=== PATIENT | female | born 1995 | race Caucasian/White ===

== ENCOUNTER 2019-10-15 15:20 | Outpatient (CLI) | payer MEDICAID, SELFPAY ==
[2019-10-15 15:30] VITALS: RESP 16; TEMP 37.1
[2019-10-15 15:42] VITALS: BMI 37.7
[2019-10-15 15:58] VITALS: BP 126/82; PULSE 107
== END 2019-10-15 16:12 | disposition home or self-care (01) ==
LOC: OPOB 15:51 → OBGYN 15:53
PROVIDERS: Visit Provider Family Medicine
DX: O36.8190 Decreased fetal movements, unspecified trimester, not applicable or unspecified (principal); Z3A.00 Weeks of gestation of pregnancy not specified
CPT/HCPCS: 59025; 59409; 99211